=== PATIENT | male | born 1945 | race Caucasian/White ===

== ENCOUNTER → 2016-09-25 | Outpatient (CLI) | payer OTHER, MEDICARE | LOC: BHFA 15:45 | PROVIDERS: ATTEND Internal Medicine Cardiovascular Disease | DX: I48.0 Paroxysmal atrial fibrillation (principal); I10 Essential (primary) hypertension ==

== ENCOUNTER → 2016-10-01 | Outpatient (CLI) | payer OTHER, MEDICARE | LOC: BHFA 13:00 | PROVIDERS: ATTEND Internal Medicine Cardiovascular Disease | DX: I48.91 Unspecified atrial fibrillation (principal) ==

== ENCOUNTER 2016-10-04 07:52 | Emergency (ER) | payer OTHER, MEDICARE ==
[2016-10-04 07:58] VITALS: TEMP 97.7
--- NOTE | 2016-10-04 08:01 | EDPHY ---
H & P Time Seen by Provider: 10/04/16 08:00 HPI/ROS: CHIEF COMPLAINT: Blood in urine HISTORY OF PRESENT ILLNESS: Patient is on Pradaxa for atrial fibrillation and flutter and noted today in the morning that he was urinating blood. He does not have dizziness or lightheadedness or any other source of bleeding. He does not have bruising or bleeding from his gums when he brushes his teeth. No dysuria and no fever. Symptoms moderate. Not better worse with anything. REVIEW OF SYSTEMS: Eye: no change in vision ENT: no sore throat Cardiac: no chest pain or syncope. He does not think that he is currently in atrial fibrillation. Pulmonary: no cough or SOB Abdomen: no vomiting, diarrhea, abdominal pain Musculoskeletal: no back pain or flank pain or testicular symptoms. Skin: no rash Neuro: no headache, no speech or motor or sensory symptoms today. Constitutional: no fever : HPI A comprehensive 10 point review of systems is otherwise negative aside from elements mentioned in the history of present illness. PAST MEDICAL HISTORY: Atrial fibrillation and flutter on Pradaxa, prostate surgery in 2010, hernia repair in 2005, hypertension. Social history: Here with spouse General Appearance: Alert and conversant, cooperative. Eyes: No scleral icterus. ENT, Mouth: Normal mucous membranes. No intraoral bleeding. Respiratory: Normal respiratory effort, breath sounds equal, lungs are clear to auscultation. Cardiovascular: Regular rate and rhythm. Gastrointestinal: Abdomen is soft and non tender. Male normal except for slight blood at the meatus. Neurological: Alert and oriented x3. Normally conversant. Face symmetric, normal movement and sensation in all extremities. Skin: No bruising or petechiae. Musculoskeletal: No peripheral edema and no joint swelling. Psychiatric: Not agitated. Emergency Department course/MDM: Discussed with pharmacy 815am; patient will be given Praxbind. Potential risk of stroke with reversal of anticoagulation discussed with the patient and consented. At this point I think his risk of stroke when he is reversed for couple of days is low but with active hematuria benefit outweighs potential risk. He will call his asthma educator on Thursday to discuss. Smoking Status: Never smoked Constitutional: Initial Vital Signs Temperature (C) 36.5 C 10/04/16 07:55 Heart Rate 58 L 10/04/16 07:55 Respiratory Rate 20 10/04/16 07:55 Blood Pressure 182/97 H 10/04/16 07:55 O2 Sat (%) 98 10/04/16 07:55 O2 Delivery Mode Room Air Allergies/Adverse Reactions: HAYFEVER Allergy (Mild, Uncoded 12/29/11 09:40) Other-Enter Comments Home Medications: Medication Instructions Recorded Dabigatran Etexilate Mesyl 150 mg PO BID #60 cap 12/29/11 [Pradaxa 150 MG (*)] Ascorbic Acid [Vitamin C 500 mg 1,000 mg PO DAILY 01/19/12 (*)] Herbals/Supplements -Info Only 1 each PO AD 01/19/12 Vitamin B Complex [Vitamin B 1 each PO DAILY 01/19/12 Complex (OTC)] Levothyroxine [Synthroid 175 mcg 175 mcg PO DAILY06 05/19/16 (*)] Losartan Potassium [Cozaar] 100 mg PO DAILY 05/19/16 amLODIPine BESYLATE [Norvasc 5 mg 5 mg PO DAILY 05/19/16 (*)] Acetaminophen [Tylenol 325mg (*)] 325 - 650 mg PO Q4HRS PRN #0 tab 05/20/16 Metoprolol Succinate 10/04/16 Medical Decision Making Differential Diagnosis: Differential considered including but not limited to coagulopathy, UTI, local trauma, renal colic. - Data Points Laboratory Results: 10/04/16 08:00 Urine Color RED Urine Appearance TURBID Urine pH 6.0 (5.0-7.5) Ur Specific Atkins 1.021 (1.002-1.030) Urine Protein 2+ H (NEGATIVE) Urine Ketones NEGATIVE (NEGATIVE) Urine Blood 3+ H (NEGATIVE) Urine Nitrate NEGATIVE (NEGATIVE) Urine Bilirubin NEGATIVE (NEGATIVE) Urine Urobilinogen NEGATIVE EU EU (0.2-1.0) Ur Leukocyte Esterase NEGATIVE (NEGATIVE) Urine RBC 50-182 /hpf H /hpf (0-3) Urine WBC NONE SEEN /hpf /hpf (0-3) Ur Epithelial Cells NONE SEEN /lpf /lpf (NONE-1+) Ur Culture Indicated? NOT INDICATED (NI) Urine Glucose 1+ H (NEGATIVE) Medications Given: Discontinued Medications Idarucizumab (Praxbind) 2.5 gm IVP Q5M PRASANNA Stop: 10/04/16 08:36 Last Admin: 10/04/16 08:35 Dose: 2.5 gm Departure - Departure Disposition: Home, Routine, Self-Care Clinical Impression: Hematuria Condition: Good Instructions: Hematuria (ED) Additional Instructions: Stop taking your Pradaxa. Return for worsening blood in your urine or trouble urinating. Call your asthma educator on Thursday to discuss when to restart anticoagulation. Referrals: JOSE CARLOS BERNAL [Primary Care Provider] - As per Instructions Marcelino Farooq MD [Medical Doctor] - As per Instructions
[2016-10-04 08:13] LABS: COLOR RED; LEUKOCYTE ESTERASE,URINE NEGATIVE (NEGATIVE); NITRITE,URINE NEGATIVE (NEGATIVE)
[2016-10-04 08:25] LABS: RBC,URINE 50-182 /hpf (0-3)
[2016-10-04 08:26] LABS: WBC,URINE NONE SEEN /hpf (0-3)
[2016-10-04] MEDS: IDARUCIZUMAB 2.5 GM/50 ML VIAL IVP SCH ×2 (08:30→08:35)
[2016-10-04 09:08] VITALS: BP 121/74; PULSE 46; RESP 18; O2SAT 96
== END 2016-10-04 09:10 | disposition home or self-care (01) ==
DX: R31.9 Hematuria, unspecified (principal); I10 Essential (primary) hypertension
CPT/HCPCS: 96374

== ENCOUNTER → 2016-10-08 | Outpatient (CLI) | payer OTHER, MEDICARE | LOC: BHFA 14:15 | PROVIDERS: ATTEND Internal Medicine Cardiovascular Disease | DX: I48.91 Unspecified atrial fibrillation (principal); I48.92 Unspecified atrial flutter ==

== ENCOUNTER 2017-01-28 18:57 | Inpatient (IN) | payer OTHER, MEDICARE ==
--- NOTE | 2017-01-28 19:27 | CPEKG ---
Heart Rate: 70 RR Interval: 857 P-R Interval: 228 QRSD Interval: 152 QT Interval: 452 QTC Interval: 488 P [place]: 80 QRS [place]: 97 T Wave [place]: 5 EKG Severity - ABNORMAL ECG - EKG Impression: SINUS RHYTHM EKG Impression: FIRST DEGREE AV BLOCK EKG Impression: RIGHT BUNDLE BRANCH BLOCK EKG Impression: BORDERLINE ST DEPRESSION, LATERAL LEADS Electronically Signed By: Felipe Castle 28-Jan-2017 19:37:38
[2017-01-28] MEDS ORDERED: NS 1,000 ML IV ONE (19:46)
--- NOTE | 2017-01-28 19:49 | EDPHY ---
H & P Stated Complaint: syncopal episode w/ fall hit back of head Time Seen by Provider: 01/28/17 19:14 HPI/ROS: CHIEF COMPLAINT: Syncope, head injury HISTORY OF PRESENT ILLNESS: The patient presents to the ED after syncopal episode at home. The patient fell from a standing position in his kitchen. The patient struck the back of his head. There was unknown loss of consciousness. The patient was attended to fairly quickly by his . The patient does have a history of paroxysmal atrial fibrillation. He is currently not anticoagulated secondary to hematuria. The patient does have a history of syncope approximately 4 weeks ago with a similar head injury which she did not seek medical evaluation for. The patient currently denies any chest pain, shortness of breath, fever, cough congestion or additional acute medical complaints REVIEW OF SYSTEMS: A comprehensive 10 point review of systems is otherwise negative aside from elements mentioned in the history of present illness. Source: Patient Exam Limitations: No limitations - Personal History Current Tetanus/Diphtheria Vaccine: Unsure Current Tetanus Diphtheria and Acellular Pertussis (TDAP): Unsure Tetanus Vaccine Date: 2004 - Medical/Surgical History Hx Asthma: No Hx Chronic Respiratory Disease: No Hx Diabetes: No Hx Cardiac Disease: Yes Hx Renal Disease: No Hx Cirrhosis: No Hx Alcoholism: No Hx HIV/AIDS: No Hx Splenectomy or Spleen Trauma: No Other PMH: Afib, Aflutter, prostate resection 2010, hernia repair 2005, skin cancer---surgical removals of growths, hypertension. - Social History Smoking Status: Never smoked - Physical Exam Exam: General Appearance: Alert, no distress Head: Occipital hematoma noted Eyes: Pupils equal, round, reactive ENT, Mouth: No hemotympanum, no oral trauma Neck: Minimal tenderness to palpation occiput and upper cervical junction Respiratory: No chest wall tender, subcutaneous air, lungs clear bilaterally Cardiovascular: Regular rate and rhythm Abdomen: Abdomen is soft and nontender, pelvis stable Skin: No lacerations, No abrasion Back: No midline T/L/S pain Extremities: Nontender, full range of motion Neurological: A&Ox3, normal motor function, normal sensory exam Constitutional: Initial Vital Signs Temperature (C) 36.8 C 01/28/17 19:01 Heart Rate 67 01/28/17 19:01 Respiratory Rate 16 01/28/17 19:01 Blood Pressure 161/75 H 01/28/17 19:01 O2 Sat (%) 96 01/28/17 19:01 O2 Delivery Mode Room Air Allergies/Adverse Reactions: HAYFEVER Allergy (Mild, Uncoded 12/29/11 09:40) Other-Enter Comments Home Medications: Medication Instructions Recorded Dabigatran Etexilate Mesyl 150 mg PO BID #60 cap 12/29/11 [Pradaxa 150 MG (*)] Ascorbic Acid [Vitamin C 500 mg 1,000 mg PO DAILY 01/19/12 (*)] Herbals/Supplements -Info Only 1 each PO AD 01/19/12 Vitamin B Complex [Vitamin B 1 each PO DAILY 01/19/12 Complex (OTC)] Levothyroxine [Synthroid 175 mcg 175 mcg PO DAILY06 05/19/16 (*)] Losartan Potassium [Cozaar] 100 mg PO DAILY 05/19/16 amLODIPine BESYLATE [Norvasc 5 mg 5 mg PO DAILY 05/19/16 (*)] Acetaminophen [Tylenol 325mg (*)] 325 - 650 mg PO Q4HRS PRN #0 tab 05/20/16 Metoprolol Succinate 10/04/16 Medical Decision Making - Diagnostics EKG Interpretation: EKG: Complete interpretation has been separately recorded in the [email or web address] archive. Summary impression: Sinus rhythm, first-degree AV block, nonspecific ST T wave changes noted Imaging Results: Imaging Impressions Cervical Spine CT 01/28/17 19:15 Impression: 1. No acute posttraumatic abnormality identified. If symptoms persist and clinical suspicion warrants, consider MRI. 2. Multilevel degenerative change, with moderate to severe spinal canal narrowing. Findings discussed with Felipe Castle M.D., on January 28, [address] 01/28/17 19:15 Impression: Left frontal subarachnoid hemorrhage. Results called to Dr.Timothy Castle on January 28, 2017 at 1950 hours. ED Course/Re-evaluation: The patient presents to the ED after syncopal episode. The patient has been having problems with hypertension and atrial fibrillation. He has been adjusting his antihypertensive medications in this evening took a full dose of metoprolol on top of his losartan and amlodipine. The patient had a syncopal event falling backwards hitting his head. The patient does have a fairly large occipital hematoma upon arrival. The patient is neurologically intact. He is not anticoagulated. The patient was taken for a stat CT scan of the head and cervical spine which demonstrated scalp hematoma and a small frontal subarachnoid hemorrhage. Consultation was made with Neurosurgery who reports that the hemorrhage is small and likely inconsequential. They will see the patient in consultation. The patient did have a 2 second pause while in the emergency department. This was asymptomatic. The patient will require admission to the hospital for medical management. Consultation was made with Dr. Huston from the hospitalist service. The patient will be admitted to monitored PCU bed this evening. The patient was noted to have a more significant pause of 5 seconds while in the emergency department. He had no associated hypotension or syncope with this event. Dr. Blanchard from Cardiology and the hospitalist service has been notified. The patient was seen in consultation by Neurosurgery while in the emergency department. Consultation was made with Dr. Ritesh Blanchard from Cardiology who is aware of the patient's admission to the hospital. The patient will be transferred to the progressive care unit at 8:40 p.m.. Differential Diagnosis: Differential diagnosis considered includes syncope, vasovagal episode, intracranial hemorrhage, skull fracture, cervical spine fracture, medication side effect, anemia Critical Care Time: Critical care time exclusive of procedures and exclusive of the PA's time was 35 minutes, performed by myself, Felipe Castle MD. The patient presents to the ED after an episode of syncope and is noted to have sinus bradycardia and pauses while in the emergency department. The patient's syncope this evening was complicated by mechanical fall resulting in a subarachnoid hemorrhage. I consulted with Neurosurgery, Cardiology and the hospitalist service. The patient will require admission to the hospital to a monitored bed this evening. - Data Points Laboratory Results: Laboratory Results 01/28/17 19:19 01/28/17 19:19 01/28/17 01/28/17 01/28/17 19:19 19:19 19:07 WBC 7.59 10^3/uL 10^3/uL (3.80-9.50) RBC 4.67 10^6/uL 10^6/uL (4.40-6.38) Hgb 15.1 g/dL g/dL (13.7-17.5) Hct 45.1 % % (40.0-51.0) MCV 96.6 fL fL (81.5-99.8) MCH 32.3 pg pg (27.9-34.1) MCHC 33.5 g/dL g/dL (32.4-36.7) RDW 13.8 % % (11.5-15.2) Plt Count 255 10^3/uL 10^3/uL (150-400) MPV 9.9 fL fL (8.7-11.7) Neut % (Auto) 43.0 % % (39.3-74.2) Lymph % (Auto) 43.7 % % (15.0-45.0) [place] % (Auto) 9.7 % % (4.5-13.0) Eos % (Auto) 3.0 % % (0.6-7.6) Baso % (Auto) 0.3 % % (0.3-1.7) Nucleat RBC Rel Count 0.0 % % (0.0-0.2) Absolute Neuts (auto) 3.26 10^3/uL 10^3/uL (1.70-6.50) Absolute Lymphs (auto) 3.32 10^3/uL H 10^3/uL (1.00-3.00) Absolute Monos (auto) 0.74 10^3/uL 10^3/uL (0.30-0.80) Absolute Eos (auto) 0.23 10^3/uL 10^3/uL (0.03-0.40) Absolute Basos (auto) 0.02 10^3/uL 10^3/uL (0.02-0.10) Absolute Nucleated RBC 0.00 10^3/uL 10^3/uL (0-0.01) Immature Gran % 0.3 % % (0.0-1.1) Immature Gran # 0.02 10^3/uL 10^3/uL (0.00-0.10) PT 12.6 SEC SEC (12.0-15.0) INR 0.95 (0.83-1.16) Sodium 141 mEq/L mEq/L (134-144) Potassium 4.4 mEq/L mEq/L (3.5-5.2) Chloride 109 mEq/L mEq/L (97-110) Carbon Dioxide 20 mEq/l L mEq/l (22-31) Anion Gap 12 mEq/L mEq/L (8-16) BUN 28 mg/dL H mg/dL (7-23) Creatinine 1.3 mg/dL mg/dL (0.7-1.3) Estimated GFR 54 Glucose 92 mg/dL mg/dL (70-100) Calcium 9.6 mg/dL mg/dL (8.5-10.4) Troponin I < 0.012 ng/mL ng/mL (0-0.034) Medications Given: Discontinued Medications Sodium Chloride (Ns) 1,000 mls @ 0 mls/hr IV EDNOW ONE; Wide Open PRN Reason: Protocol Stop: 01/28/17 19:47 Last Admin: 01/28/17 20:33 Dose: 1,000 mls Departure - Departure Disposition: [facility] Inpatient Acute Clinical Impression: Syncope, Subarachnoid hemorrhage, Scalp hematoma Condition: Good Referrals: JOSE CARLOS BERNAL [Primary Care Provider] - As per Instructions
[2017-01-28 19:53] LABS: % IMMATURE GRANULYOCYTES 0.3 % (0.0-1.1); ABSOLUTE IMMATURE GRANULOCYTES 0.02 10^3/uL (0.00-0.10); ADD DIFF? NO; ADD MORPH? NO; ADD SCAN? NO; ATYPICAL LYMPHOCYTE FLAG 10 (0-99); FRAGMENT RBC FLAG 0 (0-99); HEMATOCRIT 45.1 % (40.0-51.0); HEMOGLOBIN 15.1 g/dL (13.7-17.5); LEFT SHIFT FLG 0 (0-99); LIPEMIA HEMOLYSIS FLAG 80 (0-99); MEAN CELL HEMOGLOBIN 32.3 pg (27.9-34.1); MEAN CELL HEMOGLOBIN CONCENTR. 33.5 g/dL (32.4-36.7); MEAN CELL VOLUME 96.6 fL (81.5-99.8); MEAN PLATELET VOLUME 9.9 fL (8.7-11.7); PLATELET CLUMPS FLAG 0 (0-99); PLATELET COUNT 255 10^3/uL (150-400); RED BLOOD CELL COUNT 4.67 10^6/uL (4.40-6.38); RED CELL DISTRIBUTION WIDTH 13.8 % (11.5-15.2)
[2017-01-28 20:11] LABS: INR 0.95 (0.83-1.16); PROTIME(PATIENT) 12.6 SEC (12.0-15.0)
[2017-01-28 20:14] LABS: ANION GAP 12 mEq/L (8-16); CALCIUM 9.6 mg/dL (8.5-10.4); CARBON DIOXIDE 20 mEq/l (22-31); CHLORIDE 109 mEq/L (97-110); CREATININE 1.3 mg/dL (0.7-1.3); GLOMERULAR FILTRATION RATE 54; GLUCOSE 92 mg/dL (70-100); POTASSIUM 4.4 mEq/L (3.5-5.2); SODIUM 141 mEq/L (134-144)
[2017-01-28 20:26] LABS: TROPONIN I < 0.012 ng/mL (0-0.034)
[2017-01-28] MEDS ORDERED: ACETAMINOPHEN 325 MG TAB PO PRN (22:03)
[2017-01-28] MEDS ORDERED: ONDANSETRON DISINTEGRATING 4 MG TAB PO PRN (22:03)
[2017-01-28] MEDS ORDERED: ONDANSETRON 4 MG/2 ML VIAL IVP PRN (22:03)
[2017-01-29] MEDS: LEVOTHYROXINE 200 MCG TAB PO SCH (06:06)
--- NOTE | 2017-01-29 07:02 | GHP ---
[f rep st] HISTORY AND PHYSICAL DATE OF ADMISSION: 01/28/2017 CHIEF COMPLAINT: Syncope. HISTORY OF PRESENT ILLNESS: This is a 71-year-old male with an extensive history of atrial fibrilla tion, atrial flutter. He is status post ablation x2. He has been having trouble with blood pressur e modulation over the last several months. He initially was started on metoprolol short-acting maurilio ral months ago but then was developing bradycardia and fatigue. This was discontinued and then even tually restarted on long-acting metoprolol which he seemed to tolerate better. However, his blood p ressure lately has been getting worse and so he has decided to try the short-acting metoprolol again . He took full dose this morning, then a full dose this evening. He had a chari syncopal episode ab out 45 minutes after taking that dose. He was standing in the kitchen and essentially fainted. He did injure his head and does have a very small subarachnoid hemorrhage. He does experience episodes of atrial fibrillation frequently, usually short runs. He says this usually is worse when his bloo d pressure is elevated. He is denying any chest pain or shortness of breath at this time. REVIEW OF SYSTEMS: A 10-point review of systems was obtained and as stated above, otherwise negativ e. PAST MEDICAL HISTORY: 1. Atrial fibrillation/atrial flutter, status post multiple ablations. 2. Hypertension, which is labile and difficult to control. 3. History of prostate resection and hernia repair. SOCIAL HISTORY: No smoking or alcohol. 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 FAMILY HISTORY: Reviewed and noncontributory. PHYSICAL EXAM: VITAL SIGNS: Afebrile. Blood pressure is 138/66, heart rate 62, oxygen saturation 100% on room air. GENERAL: The patient is well developed, no apparent distress. HEENT: Nonicteri c sclerae. Extraocular movements intact. Moist mucous membranes. NECK: Supple. No thyromegaly. LUNGS: Good effort. Clear to auscultation bilaterally. CARDIOVASCULAR: Regular rate and rhythm. No murmurs, gallops. ABDOMEN: Positive bowel sounds. Soft, nontender, nondistended. No hepatos plenomegaly. EXTREMITIES: No clubbing, cyanosis, or edema. SKIN: Without rash. Warm, dry, intac t. NEUROLOGIC: Alert and oriented x3. Moving all 4 extremities equally. PSYCH: Normal mood and affect. LABS: CBC is normal. Coags are normal. Chemistry is essentially normal. Troponin is negative. E KG personally reviewed and interpreted, shows a normal sinus rhythm and a right bundle branch block. Telemetry is reviewed and there is a 5 second pause and there are frequent PACs with frequent PACs as well. Head CT personally reviewed and interpreted, shows a small left frontal subarachnoid hemorrhage. ASSESSMENT/PLAN: This is a 71-year-old male with a history of atrial fibrillation and difficult to control hypertension, presented with syncopal episode after increasing his dose of metoprolol. 1. Syncope. I think this is related to the increased dose of metoprolol. He does have a 5 second pause that we have seen and some frequent PVCs. We will monitor him on telemetry and will get Cardi ology involved in the morning. We will hold anymore beta blockers. 2. Hypertension. We will continue his amlodipine and losartan. 3. Small subarachnoid hemorrhage. Neurosurgery feels that this is small and does not need followup CT. 4. History of atrial fibrillation. Patient has been off anticoagulation since his episode of hemat uria several months ago. Especially considering his subarachnoid hemorrhage we will continue to be off that. 5. Admission. Patient will be admitted under observation status. Case discussed with ER physician . /[id number]/MODL
[2017-01-29] MEDS: LOSARTAN POTASSIUM 50 MG TAB PO SCH (08:19)
--- NOTE | 2017-01-29 08:26 | NEUSURGPN ---
Assessment/Plan: 71 yr old male syncope, hit head-small tSAH 1. Neurologically stable, no need to re-scan head unless neuro changes 2. Patient history of afib, ok to restart anticoagulants Thursday02/01/17 3. Neurosurgery will sign off today, please contact us with any changes in neuro status 4. Follow up with neurosurgery in office if symptomatic after discharge Subjective: Mild headache Objective: A/O x3 PERRLA EOMI BUE, BLE 5/5 sensation intact to lt touch bue, ble Neuro Check Frequency: per routine Urinary Catheter in Place: No - Physician Discussed Patient with : Dilip Patient Seen by : Dilip Neurosurgery Physical Exam - Vitals, I&O, Labs I and O 01/28/17 01/29/17 01/30/17 05:59 05:59 05:59 Intake Total 1000 Output Total 600 325 Balance 400 -325 Weight 76.9 kg Intake: IV Infused (ml) 1000 Output: Urine (ml) 600 325 Urinal 600 325 Other: Number of Voids 1 Urinal 1 1 Vital Signs Temp Pulse Resp BP Pulse Ox 36.2 C 55 L 13 130/66 H 100 01/29/17 08:00 01/29/17 08:00 01/29/17 08:00 01/29/17 08:00 01/29/17 08:00 ICD10 Worksheet Patient Problems: Problems Problem Status Onset Scalp hematoma Acute Subarachnoid hemorrhage Acute Syncope Acute Atrial flutter Acute
[2017-01-29] MEDS ORDERED: NON-FORMULARY NEW DRUG (Losartan Potassium [Cozaar] 100 MG) PO SCH (09:00)
[2017-01-29] MEDS ORDERED: BACITRACIN IRRIGATION/NS 50,000 UNITS/1,000 ML BTL IRR ONE (10:09)
[2017-01-29] MEDS ORDERED: DIAZEPAM 5 MG TAB PO ONE (10:09)
[2017-01-29] MEDS ORDERED: diphenhydrAMINE 25 MG CAP PO ONE ×2 (10:09→11:55)
[2017-01-29] MEDS ORDERED: NS 1,000 ML IV SCH (10:15)
--- NOTE | 2017-01-29 10:58 | GCON ---
[f rep st] CONSULTATION CONSULTATION/HISTORY AND PHYSICAL DATE OF CONSULTATION: 01/28/2017 The patient seen in the emergency department by Dr. Miguel Cherry and myself at the ER at 2030 on 01/28/2017. CHIEF COMPLAINT: 1. Syncopal episode. 2. Traumatic subarachnoid hemorrhage. 3. Fall. 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 He states he is otherwise healthy except for some issues with his heart, dealing with some atrial fibrillation and hypertension. He was cooking and making his dinner tonight about 6:30. He states he has been adjusting his dose of metoprolol for hypertension and had a syncopal episode tonight, he fell and hit the back of the right side of his head. There was some period of loss of consciousness. His heard the fall and ran in to attend to him. He came into the hospital , and a CT scan of the neck was obtained, which was negative for any fracture and a CT scan of the head was obtained which showed a small left frontal traumatic subarachnoid hemorrhage. He denies any blood thinning medicine such as aspirin or Coumadin. He was on blood thinning medicines but stopped in October. He stopped this due to having hematuria. The patient denies any upper or lower extremity symptoms such as new numbness, tingling, or weakness. PAST MEDICAL HISTORY: Significant for the followin. AFib. 2. Atrial flutter. 3. Hypertension. 4. Hypothyroidism. MEDICATIONS: Include the following: Metoprolol, amlodipine, losartan, hydrochlorothiazide. ALLERGIES: No known drug allergies. SURGICAL HISTORY: 1. Patient has had [address] Hernandez. 2. Hernia repair, right inguinal. 3. Lipoma removal. 4. Prostate GreenLight laser treatment. 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 He is . Has 1 grown child. He does not smoke. Does not drink any alcohol. Does not use any illicit drugs. IMMUNIZATIONS: Reported up to date. TRAVEL: Patient did go to [facility] in November and [place] recently. REVIEW OF SYSTEMS: Complete review of systems done in conjunction with the above noted the following: HEENT: Mild right-sided posterior headache. No diplopia. No loss of vision. No loss of visual field. No hearing loss, tinnitus or vertigo. PULMONARY: No cough, sputum production, hemoptysis, dyspnea or pleuritic chest pain. CARDIAC: No chest pain or pressure. No palpitations. GI: No weight loss or gain. No nausea, vomiting, or diarrhea. : No dysuria, hematuria, nocturia, urgency or frequency. NEURO: Patient denies any dizziness. Does have syncope. No seizures. No upper or lower extremity weakness. PSYCH: No suicidality. PHYSICAL EXAMINATION: GENERAL: This is an awake, alert, oriented male, in no acute distress. VITAL SIGNS: Stable. HEENT: Pupils are equal, round, reactive to light. EOMIs intact. Full visual clark by confrontation. Ears are patent. Nose is patent. NECK: Soft and supple. Midline tenderness. Full range of motion in flexion, extension, lateral bending, and rotation. RESPIRATORY: Deferred. CARDIAC: Deferred. ABDOMEN: Soft, nontender. No peritoneal signs. /RECTAL: Deferred. NEURO: Patient is awake, alert, oriented to name, place, location, date, time, and situation. Memory is intact to immediate, past, and current events. Speech: No aphasia, dysarthria, dysphonia. Cranial nerves 2-12 grossly intact. 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 EHL testing: Sensation is grossly intact to light touch throughout all dermatome distributions in upper and lower extremities. Negative straight leg raise. Negative BALA test. Reflexes of biceps, triceps , brachioradialis, knee jerk, and ankle jerk are 2+/4. Toes downgoing bilaterally. Sy's negative. Babinski negative. No evidence of clonus. MEDICAL DECISION MAKING: Diagnostic studies: The patient did have EKG with periods of pauses for which Cardiology was consulted. A CT scan of the neck was negative for any acute fracture. CT scan of the head without contrast shows a left frontal lobe small traumatic subarachnoid hemorrhage with no shift. IMPRESSION: 1. Syncopal episode. 2. Left frontal traumatic subarachnoid hemorrhage. 3. Fall with pauses on manager of financial planning. PLAN AND DISCUSSION: The patient is a 71-year-old gentleman who does have some significant heart history with related to some ablations and atrial fibrillation. He also has some issues with hypertension. He had a syncopal episode. Tonight he was brought into the emergency department and showed a small left frontal traumatic subarachnoid hemorrhage on his CT scan. We will follow him with neurologic checks but he does not require any further CT scan or imaging at this time unless any neuro changes occur. The patient was seen in the emergency department both by myself and Dr. Cherry. Medicine will be admitting him and work him up as far as causes of his syncopal episode. Cardiology reportedly was consulted as well, who will give us an opinion about his condition as well. He has had long pauses on his EKG and had some increase , based on his own recommendations, with his metoprolol which could have lead to an episode of hypotension and syncope or slow heart rate, but we will defer to Internal Medicine and Cardiology for further workup and their expertise. The patient understands and agrees as does his who was present at our visit. /[id number]/MODL MTDD
[2017-01-29] MEDS ORDERED: ceFAZolin 2 GM/DEXTROSE 100 ML IV ONE (11:55)
[2017-01-29] MEDS ORDERED: BUPIVACAINE 0.5% 30 ML SDV ONE (12:36)
[2017-01-29] MEDS ORDERED: MIDAZOLAM 2 MG/2 ML VIAL ONE ×2 (12:36→13:37)
[2017-01-29] MEDS ORDERED: fentaNYL 100 MCG/2 ML INJ ONE ×2 (12:36→13:37)
[2017-01-29] MEDS ORDERED: LIDO/EPI 1% **for epidural** 30 ML SDV ONE (12:36)
[2017-01-29] MEDS ORDERED: LIDOCAINE 1% 300 MG/30 ML SDV ONE (12:36)
--- NOTE | 2017-01-29 12:53 | SOAPPROG ---
[facility] Progress Note Assessment/Plan: Assessment: He has a history of known conduction system disease in the form of a right bundle branch block and first-degree AV block . Additionally, he has had episodes of intermittent atrial fibrillation ever since his prior two atrial flutter ablations. He presents now with episodes of syncope associated with objective findings of very long cardiac pauses at the time of conversion from atrial fibrillation to sinus rhythm. This is occurring in the setting of a background therapy of very low doses of metoprolol at 12-,1/2 mg twice daily. Presently, I think that he meets a class 1 indication for placement of a permanent dual-chamber pacemaker. Consideration could be given to cessation of his beta-blockers in observation for recurrent episodes of bradycardia however I think this is very likely to occur and he has already demonstrated that he is prone to injury. I described to him the procedure in detail. The risks, benefits and alternatives were described. He is in agreement. We will place a permanent pacemaker this afternoon. Following placement of this device, we can consider more aggressive therapy of his underlying atrial arrhythmias including advanced medical therapy or potentially referring him for another ablation procedure. I discussed this with Neurosurgery. They do not see any contraindication to proceeding. Per their recommendations, if we should decide anticoagulated he would be suitable for anticoagulation beginning Thursday. 01/29/17 12:56 Subjective: The patient was seen and examined. His chart was reviewed. He is typically followed as an outpatient by Dr. Tan Hernandez. Has a history of paroxysmal atrial flutter. He has had 2 previous atrial flutter ablation. Following this he has had episodes of recurrent atrial fibrillation. Symptoms in atrial fibrillation include palpitations and fatigue. He has been treated as an outpatient with very low-dose of metoprolol at 12-,1/2 mg twice daily. He is currently not on systemic anticoagulation by his own choice. Apparently, he had hematuria at 1 point when taking 1 of the novel agents. This was discontinued and he has not had any recurrent hematuria. He is admitted now following an episode of syncope. He states that he was feeling fairly well yesterday. At about 6:00 p.m. he got up off the couch to going to the kitchen to make dinner. After that he remembers waking up on the floor with his by his side. He did fall and strike his head. As a result he has sustained a small subarachnoid bleed. In talking to him about this he states that he had a similar event 3 weeks ago. At that time he struck the front of his head. He has been experiencing worsening and increasing episodes of palpitations. Because of this he took an additional half a tablet of metoprolol yesterday morning. 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 He has been using [employer] Her[employer]. In asking him about these changes are of he states that these typically do not affect heart rate. He has also noted increasing episodes of palpitations. These typically occur at night . Often times he has episodes of presyncope associated with his palpitations. He denies symptoms of chest pain. He notes no dyspnea. He denies orthopnea, PND and lower extremity edema. Objective: Vital Signs Temp Pulse Resp BP Pulse Ox 37.2 C 58 L 16 133/65 H 93 01/29/17 12:11 01/29/17 12:11 01/29/17 12:11 01/29/17 12:11 01/29/17 12:11 01/28/17 01/29/17 01/30/17 05:59 05:59 05:59 Intake Total 1000 Output Total 600 325 Balance 400 -325 PT 12.6 SEC (12.0-15.0) 01/28/17 19:07 INR 0.95 (0.83-1.16) 01/28/17 19:07 His electrocardiogram demonstrates normal sinus rhythm with first-degree AV block and a wide right bundle branch block. In reviewing telemetry, he has had multiple nonsustained episodes of atrial fibrillation. In conjunction with conversion from atrial fibrillation to normal sinus rhythm there has been evidence of pauses up to 7.9 seconds in duration. Additionally, he has had multiple pauses greater than 3 seconds in duration associated with frequent premature atrial contractions and post compensatory pauses. Physical Exam - Physical Exam General Appearance: WD/WN, no apparent distress Neck: full range of motion Respiratory: chest non-tender Cardiac/Chest: normal peripheral pulses, regular rate, rhythm, No edema, No gallop, No JVD Peripheral Pulses: 2+: carotid (R), carotid (L) Abdomen: non-tender, soft Male Genitalia: deferred Rectal: deferred Neuro/Psych: alert, oriented x 3 ICD10 Worksheet Patient Problems: Problems Problem Status Onset Scalp hematoma Acute Subarachnoid hemorrhage Acute Syncope Acute Atrial flutter Acute
[2017-01-29] MEDS ORDERED: CEFAZOLIN 1 GM/DEXTROSE/50 ML BAG IV ONE (13:09)
[2017-01-29] MEDS ORDERED: DOPamine/DEXTROSE/250 ML BAG IV ONE (13:25)
[2017-01-29] MEDS ORDERED: EPINEPHrine 1 MG/10 ML SYR IVP ONE (13:25)
[2017-01-29] MEDS ORDERED: ATROPINE SULFATE 1 MG/10 ML SYR ONE (13:25)
--- NOTE | 2017-01-29 14:25 | POSTOPPROG ---
Post Op Note Date of Operation: 01/29/17 Surgeon: Ritesh Blanchard Anesthesia: IV Sedation, Local (Specify) Pre-op Diagnosis: SSS with Syncope Post-op Diagnosis: Same Indication: Above Procedure: Dual chamber pacemaker Findings: N/A Inf/Abcess present in the surg proc area at time of surgery?: No Depth: Superfical (Skin SQ) EBL: Minimal
--- NOTE | 2017-01-29 15:04 | CPEKG ---
Heart Rate: 60 RR Interval: 1000 P-R Interval: 224 QRSD Interval: 154 QT Interval: 480 QTC Interval: 480 QRS [place]: 116 T Wave [place]: 25 EKG Severity - ABNORMAL ECG - EKG Impression: ATRIAL-PACED RHYTHM EKG Impression: RBBB AND LPFB EKG Impression: ATRIAL PACING IS NEW Electronically Signed By: Jarek Cutler 29-Jan-2017 21:38:55
--- NOTE | 2017-01-29 15:05 | HOSPPROG ---
Hospitalist Progress Note Assessment/Plan: * Syncope - due to cardiac pause/bradycardia -d/w Dr. Blanchard - PPM today * Afib s/p ablation -no anticoagulation due to patient choice * Small frontal traumatic SAH -stable * HTN -now on losartan + PO diltiazem Subjective: NO new complaints. Objective: Vital Signs Temp Pulse Resp BP Pulse Ox 37.2 C 58 L 16 133/65 H 93 01/29/17 12:11 01/29/17 12:11 01/29/17 12:11 01/29/17 12:11 01/29/17 12:11 01/28/17 01/29/17 01/30/17 05:59 05:59 05:59 Intake Total 1000 Output Total 600 325 Balance 400 -325 PT 12.6 SEC (12.0-15.0) 01/28/17 19:07 INR 0.95 (0.83-1.16) 01/28/17 19:07 EKG viewed, my personal interpretation is - 1st degree plus RBBB - Physical Exam Constitutional: no apparent distress, appears nourished, not in pain Cardiovascular: regular rate and rhythym, no murmur, rub, or gallop Respiratory: no respiratory distress, no rales or rhonchi, clear to auscultation Gastrointestinal: normoactive bowel sounds, soft, non-tender abdomen, no palpable masses Skin: no rashes or abrasions, no fluctuance, no induration Neurologic: AAOx3, sensation intact bilaterally Psychiatric: interacting appropriately, not anxious, not encephalopathic, thought process linear ICD10 Worksheet Patient Problems: Problems Problem Status Onset Scalp hematoma Acute Subarachnoid hemorrhage Acute Syncope Acute Atrial flutter Acute
[2017-01-29] MEDS: DILTIAZEM CD 120 MG CAP PO SCH (17:05)
--- NOTE | 2017-01-30 00:15 | CPIP ---
[f rep st] INVASIVE CARDIAC PROCEDURE DATE OF PROCEDURE: 01/29/2017 INDICATION: The patient is a pleasant 71-year-old male. He has a history of paroxysmal atrial flut ter with 2 previous flutter ablations. He currently has paroxysmal atrial fibrillation. He is admi tted following multiple episodes of syncope. On telemetry, he is found to have cardiac pauses of up to 7.9 seconds in duration. PROCEDURE: Implantation of a dual-chamber pacemaker. TECHNIQUE: Following informed consent and in the fasting state, the left chest was prepped and drap ed in usual sterile fashion. Immediately prior to the procedure, prophylactic antibiotics were admi nistered. 2% lidocaine was infiltrated in the skin below the left clavicle. Using a #10 blade, a 3 cm incision was made. Using blunt and sharp dissection, the pacemaker pocket was fashioned and all bleeders were cauterized. Using the modified Seldinger technique and 2 separate sticks, access was gained to the axillary vein at the level of the 1st rib. Two individual 0.035 J-wires were placed. Using the first of these J-wires, a 6-[place] sheath was placed. This allowed us to position the r ight ventricular lead deep into the right ventricular apex where the sheath was torn away and the le ad screwed into place. Using another 6-[place]val[place] sheath, the atrial lead was then placed in the right atrial appendage. This lead was screwed into place and the sheath torn away. Both leads were then tested individually. There was adequate capture and sensing noted. At this point, the leads were secured to the pacemaker pocket floor using 0 Ethibond. The pocket wa s then irrigated with antibiotic-containing solution. The pocket was inspected. All bleeders were cauterized. The device was brought to the field, both leads were identified by serial number and af fixed to the header according to handle maker guidelines. The device and the redundant portions of both leads were then placed in the pocket. The device was secured in place with a single 0 silk sut ure. The pocket was then closed in 3 layers, initially using 2 layers of interrupted suture with 2- 0 and 3-0 Vicryl. Running subcuticular sutures for the skin were then placed. Steri-Strips and a d ry dressing were placed. COMPLICATIONS: None. DEVICE INFORMATION: The pacemaker is a Contattaronik Edora 8DRT, model number 367456, serial number [id number]. The atrial lead is Biotronik Solia S45, model number 077564, serial number [id number]. The ve ntricular lead is a Biotronik Solia S53, model number 769703, serial number [id number]. In the atrium , capture was 0.6 V at 1 msec with sensed P waves of 3.1 mV and lead impedance of 468 ohms. In the ventricle, capture was 0.4 V at 0.4 msec with a lead impedance of 741 ohms and sensed R waves of 7.9 mV. DISPOSITION: The patient will be recovered in the CVC. He will be transferred to the PCU. He will be observed overnight. I anticipate that he will be discharged home tomorrow. /[id number]/MODL
[2017-01-30] MEDS: LEVOTHYROXINE 200 MCG TAB PO SCH (06:47)
[2017-01-30 07:22] VITALS: BP 128/74; PULSE 72; RESP 20; TEMP 97.6; O2SAT 92
[2017-01-30] MEDS: DILTIAZEM CD 120 MG CAP PO SCH (08:49)
[2017-01-30] MEDS: LOSARTAN POTASSIUM 50 MG TAB PO SCH (08:49)
--- NOTE | 2017-01-30 09:13 | CPEKG ---
Heart Rate: 72 RR Interval: 833 P-R Interval: 204 QRSD Interval: 86 QT Interval: 436 QTC Interval: 478 QRS [place]: 85 T Wave [place]: 69 EKG Severity - ABNORMAL ECG - EKG Impression: ATRIAL-PACED COMPLEXES EKG Impression: BORDERLINE RIGHT AXIS DEVIATION EKG Impression: PACs ARE NOTED Electronically Signed By: Jarek Cutler 30-Jan-2017 14:15:26
--- NOTE | 2017-01-31 05:33 | GDS ---
[f rep st] DISCHARGE SUMMARY DISCHARGE DIAGNOSES: 1. Syncope due to bradycardia and cardiac pause, status post pacemaker. 2. Atrial fibrillation, status post previous ablation. 3. Small frontal traumatic subarachnoid hemorrhage. 4. Hypertension. HISTORY: The patient is a 71-year-old male, who had a syncopal event after taking an extra dose of metoprolol. He was admitted to the hospital and had significant cardiac pauses and bradycardia, whi ch Cardiology felt was more than could be resolved by simply discontinuing metoprolol. He went to p ermanent pacemaker placement with Dr. Blanchard. He has had a previous ablation for AFib. He is not an ticoagulated due to his choice. During his syncopal event, he hit his head and has a small frontal traumatic subarachnoid hemorrhage . Neurosurgery was consulted and reviewed his scans and felt this hemorrhage portended an excellent prognosis and no further followup was needed. Dr. Blanchard has chosen to discontinue his metoprolol and instead place him on oral diltiazem at the ti me of discharge. DISCHARGE MEDICATIONS: Please see computer record for full detailed list. New medications: Diltiazem CD 120 mg p.o. daily. Discontinued medications: Metoprolol 25 mg p.o. b.i.d., Norvasc 2.5 mg p.o. daily. All other medications were continued as they were prior to admission. DISCHARGE INSTRUCTIONS: 1. Follow up with Dr. Hernandez as arranged for post pacemaker followup. 2. Follow up with Neurosurgery post discharge only if symptomatic. Greater than 30 minutes' time was spent arranging this discharge. Patient was seen and examined by me on the day of discharge. /[id number]/MODL
== END 2017-01-30 12:44 | disposition home or self-care (01) | DRG 242 ==
LOC: INTOOBSV 20:19 → F2N 21:56 → OBSVTOIN 01-29 14:21 → F2W 01-29 16:40
PROVIDERS: ADMIT Internal Medicine; ATTEND Internal Medicine
PROC: 02HK3MZ Insertion of Cardiac Lead into Right Ventricle, Percutaneous Approach (ICD-10-PCS; principal; 2017-01-29)
PROC: 02H63MZ Insertion of Cardiac Lead into Right Atrium, Percutaneous Approach (ICD-10-PCS; principal; 2017-01-29)
PROC: 0JH606Z Insertion of Pacemaker, Dual Chamber into Chest Subcutaneous Tissue and Fascia, Open Approach (ICD-10-PCS; principal; 2017-01-29)
DX: R00.1 Bradycardia, unspecified (principal); S06.6X0A Traumatic subarachnoid hemorrhage without loss of consciousness, initial encounter; E03.9 Hypothyroidism, unspecified; W18.39XA Other fall on same level, initial encounter; I10 Essential (primary) hypertension; Y92.010 Kitchen of single-family (private) house as the place of occurrence of the external cause; Z85.820 Personal history of malignant melanoma of skin
CPT/HCPCS: 92523-GN; 97161-GP; 97165-GO; C1785; C1898; G0378; G8978-GP-CH; G8979-GP-CH; G8980-GP-CH; G8987-GO-CI; G8988-GO-CI; G8989-GO-CI; G9165-GN-CH; G9166-GN-CH; G9167-GN-CH; J0461; J0690; J1265; J2250; J3010

== ENCOUNTER 2017-07-03 08:48 | Emergency (ER) | payer OTHER, MEDICARE ==
[2017-07-03 08:57] VITALS: TEMP 96.8
[2017-07-03] MEDS ORDERED: HYDROmorphONE/DILAUDID 1 MG/ML INJ IVP PRN (09:27)
[2017-07-03] MEDS ORDERED: ONDANSETRON 4 MG/2 ML VIAL IVP ONE (09:28)
[2017-07-03 09:34] LABS: PLATELET COUNT 210 10^3/uL (150-400)
[2017-07-03 09:36] LABS: INR 1.1 (0.83-1.16); PROTIME(PATIENT) 14.4 SEC (12.0-15.0)
--- NOTE | 2017-07-03 09:56 | EDPHY ---
H & P Time Seen by Provider: 07/03/17 09:35 HPI/ROS: CHIEF COMPLAINT: Mechanical fall, left wrist injury, left eyebrow laceration HISTORY OF PRESENT ILLNESS: 71-year-old male presents to the emergency department by private vehicle with his after mechanical fall earlier this morning. The patient was walking outside with his and slipped on some ice and injured his left wrist and hit his head. He did not lose consciousness. He complains of pain in his left wrist especially with movement. He denies any chest pain or difficulty breathing. Denies any presyncopal symptoms prior to his fall. Denies neck or back pain. Denies abdominal pain or vomiting. Denies injury to his lower extremities. REVIEW OF SYSTEMS: Constitutional: No fever, no chills. Eyes: No double or blurry vision. ENT: No sore throat. Respiratory: No cough, no shortness of breath. Cardiac: No chest pain. Gastrointestinal: No abdominal pain, vomiting or diarrhea. Genitourinary: No dysuria. Musculoskeletal: No neck or back pain. Skin: Eyebrow laceration. No rashes. Neurological: No headache. Past Medical/Surgical History: Atrial flutter with ablation and cardioversion, atrial fibrillation, pacemaker, prostate resection 2010, hernia repair 2005, skin cancer, hypertension, syncopal episode January 2017, lipoma removal Social History: Smoking Status: Never smoked Physical Exam: General Appearance: Alert, no distress. Mentating normally and answering questions appropriately. at bedside. Eyes: Pupils equal and round. Extraocular motions are all intact. Small less than 2 cm laceration to the left eyebrow. No active bleeding currently. ENT: Mouth: Mucous membranes moist. No dental injury or malocclusion. Respiratory: No wheezing, rhonchi, or rales, lungs are clear to auscultation. Cardiovascular: Regular rate and rhythm. Gastrointestinal: Abdomen is soft and nontender, no masses, no rebound or guarding, bowel sounds normal. Neurological: Alert and oriented x 3, cranial nerves II through XII grossly intact Skin: Left eyebrow laceration as noted above. Warm and dry, no rashes. Musculoskeletal: Nontender to palpate along the cervical, thoracic or lumbar spine. Neck is supple. Extremities: Obvious deformity noted to the left wrist. Normal sensation to light touch with normal 2 point discrimination. No signs of open fracture. Unable to supinate the left wrist secondary to pain. Strong radial pulse at the left wrist. Nontender to palpate the left hand or left elbow or left shoulder. Full range of motion of the right upper extremity and lower extremities bilaterally. Psychiatric: Patient is oriented X 3, there is no agitation. Constitutional: Initial Vital Signs Temperature (C) 36.0 C 07/03/17 08:54 Heart Rate 67 07/03/17 08:54 Respiratory Rate 18 07/03/17 08:54 Blood Pressure 163/81 H 07/03/17 08:54 O2 Sat (%) 97 07/03/17 08:54 O2 Delivery Mode Room Air O2 (L/minute) 2 Allergies/Adverse Reactions: cat dander Allergy (Verified 07/03/17 08:57) HAYFEVER Allergy (Mild, Uncoded 12/29/11 09:40) Other-Enter Comments Home Medications: Medication Instructions Recorded Ascorbic Acid [Vitamin C 500 mg 1,000 mg PO DAILY 01/28/17 (*)] Herbals/Supplements -Info Only 1 ea PO DAILY 01/28/17 Levothyroxine [Synthroid 200 mcg 200 mcg PO DAILY06 01/28/17 (*)] Losartan Potassium [Cozaar] 100 mg PO DAILY 01/28/17 Vitamin B Complex [B Complex] 1 each PO DAILY 01/28/17 Carvedilol 07/03/17 Eliquis 07/03/17 Rythmol Sr 07/03/17 Medical Decision Making - Diagnostics Imaging Results: Imaging Impressions Wrist X-Ray 07/03/17 09:28 Impression: 1. Comminuted intraarticular fracture of the distal radius with dorsal angulation and displacement. 2. Probable nondisplaced ulnar styloid fracture. Head CT 07/03/17 09:52 Impression: 1. No acute intracranial findings. 2. Diffuse cerebral atrophy with periventricular and subcortical low attenuation consistent with chronic microvascular ischemic gliosis. Findings discussed with Shari Anton on 07/03/2017 at 10:28 a.m. Procedures: Laceration repair. Verbal consent was obtained from the patient. The 1.5 cm laceration on the left eyebrow was anesthetized using 1% lidocaine with epinephrine. The wound was irrigated with saline, draped and explored to its base with a gloved finger. There were no deep structures involved. The wound was repaired with 6 0 Prolene, 5 sutures. The wound repair was simple. The procedure was performed by myself. ED Course/Re-evaluation: 71-year-old male presents to the emergency department after mechanical fall slipping on ice. He injured his left wrist and sustained a left eyebrow laceration. The patient is on Eliquis. Explained the concern of possible intracranial bleeding. I discussed the pros and cons of CT imaging of his brain including radiation exposure and the patient agrees with CT scan. CT imaging of the brain was normal. Left eyebrow laceration was repaired, see procedure note. X-rays reveal comminuted, displaced distal radius fracture. This was discussed with Dr. Jodi Morgan who performed hematoma block and reduction of the patient's left wrist fracture. Dr. Jodi Morgan placed sugar-tong splint and sling. This was examined post application in good placement with normal SUSTAINABILITY PURCHASING AGENT. Patient was given orthopedic referral. I did speak with the on-call physician kindergarten teacher assistant, Yen, working with Dr. Marcelino Moss. He was instructed to call to arrange follow-up appointment for next week. Differential Diagnosis: Head injury including but not limited to concussion, skull fracture, intraparenchymal contusion, subarachnoid, subdural and epidural hematoma. Wrist injury including but not limited to fracture, dislocation, contusion, sprain - Data Points Laboratory Results: Laboratory Results 07/03/17 09:10 07/03/17 09:10 07/03/17 07/03/17 07/03/17 09:10 09:10 09:10 WBC 6.15 10^3/uL 10^3/uL (3.80-9.50) RBC 4.62 10^6/uL 10^6/uL (4.40-6.38) Hgb 14.9 g/dL g/dL (13.7-17.5) Hct 42.4 % % (40.0-51.0) MCV 91.8 fL fL (81.5-99.8) MCH 32.3 pg pg (27.9-34.1) MCHC 35.1 g/dL g/dL (32.4-36.7) RDW 13.1 % % (11.5-15.2) Plt Count 210 10^3/uL 10^3/uL (150-400) MPV 8.9 fL fL (8.7-11.7) Neut % (Auto) 51.5 % % (39.3-74.2) Lymph % (Auto) 29.1 % % (15.0-45.0) [place] % (Auto) 9.8 % % (4.5-13.0) Eos % (Auto) 9.4 % H % (0.6-7.6) Baso % (Auto) 0.0 % L % (0.3-1.7) Nucleat RBC Rel Count 0.0 % % (0.0-0.2) Absolute Neuts (auto) 3.17 10^3/uL 10^3/uL (1.70-6.50) Absolute Lymphs (auto) 1.79 10^3/uL 10^3/uL (1.00-3.00) Absolute Monos (auto) 0.60 10^3/uL 10^3/uL (0.30-0.80) Absolute Eos (auto) 0.58 10^3/uL H 10^3/uL (0.03-0.40) Absolute Basos (auto) 0.00 10^3/uL L 10^3/uL (0.02-0.10) Absolute Nucleated RBC 0.00 10^3/uL 10^3/uL (0-0.01) Immature Gran % 0.2 % % (0.0-1.1) Immature Gran # 0.01 10^3/uL 10^3/uL (0.00-0.10) PT 14.4 SEC SEC (12.0-15.0) INR 1.10 (0.83-1.16) Sodium 142 mEq/L mEq/L (134-144) Potassium 4.6 mEq/L mEq/L (3.5-5.2) Chloride 106 mEq/L mEq/L (97-110) Carbon Dioxide 24 mEq/l mEq/l (22-31) Anion Gap 12 mEq/L mEq/L (8-16) BUN 19 mg/dL mg/dL (7-23) Creatinine 1.1 mg/dL mg/dL (0.7-1.3) Estimated GFR > 60 Glucose 135 mg/dL H mg/dL (70-100) Calcium 9.4 mg/dL mg/dL (8.5-10.4) Medications Given: Discontinued Medications Fentanyl (Sublimaze) 100 mcg IVP EDNOW ONE Stop: 07/03/17 11:46 Last Admin: 07/03/17 11:48 Dose: 100 mcg Hydromorphone HCl (Dilaudid) 1 mg IVP Q4HRS PRN PRN Reason: Pain, Severe Unable to Take PO Stop: 07/13/17 09:26 Last Admin: 07/03/17 09:32 Dose: 1 mg Ondansetron HCl (Zofran) 4 mg IVP EDNOW ONE Stop: 07/03/17 09:29 Last Admin: 07/03/17 09:32 Dose: 4 mg Departure - Departure Disposition: Home, Routine, Self-Care Clinical Impression: Left wrist fracture Qualifiers: Encounter type: initial encounter Fracture type: closed Qualified Code(s): S62.102A - Fracture of unspecified carpal bone, left wrist, initial encounter for closed fracture Laceration of left eyebrow without complication Qualifiers: Encounter type: initial encounter Qualified Code(s): S01.112A - Laceration without foreign body of left eyelid and periocular area, initial encounter Condition: Good Instructions: Care For Your Stitches (ED), Laceration (ED), Wrist Fracture in Adults (ED), Acute Wounds (ED) Additional Instructions: Wound Care Follow-Up: Removal of sutures in 5 days. Suture removal is complimentary in uncomplicated cases. Infection or abnormal findings would require reevaluation by the MD. In that case, you may be billed. Keep splint on and keep sling on until follow-up with orthopedic surgeon next week. Call after 1:00 p.m. today and tell them that you were seen in the emergency department with a displaced left distal radius fracture which was reduced in the emergency department. Tylenol 1000 mg every 4-6 hours as needed for pain. Referrals: JOSE CARLOS BERNAL [Primary Care Provider] - As per Instructions Marcelino Moss MD [Medical Doctor] - 2-3 days without fail (Orthopedic surgeon on -call)
[2017-07-03 11:25] VITALS: RESP 16
[2017-07-03] MEDS ORDERED: fentaNYL 100 MCG/2 ML INJ ONE (11:29)
[2017-07-03] MEDS ORDERED: fentaNYL 100 MCG/2 ML INJ IVP ONE (11:45)
[2017-07-03 12:56] VITALS: BP 146/83; PULSE 72; O2SAT 97
--- NOTE | 2017-07-03 18:30 | ASDISCHSUM ---
Discharge Information Plan Status:Home with No Needs Medically Cleared to Leave: Discharge Date:07/03/2017 12:53 PM CM D/C Disposition:Home, Routine, Self-Care ADT D/C Disposition:Home, Routine, Self-Care Projected Discharge Date:07/03/2017 12:53 PM Transportation at D/C:Family Discharge Delay Reason: Follow-Up Date:07/03/2017 12:53 PM Discharge Slot: Final Diagnosis: Placement Information Patient Contact Information Contact Name:DAVON Relationship: Address:[address] [place] Work Phone: City:[place] [facility] Phone: [facility]/Zip Code:[place] [address] Email: Financial Information Financial Class: Primary Plan Desc:MEDICARE OUTPATIENT Primary Plan Number:[id number] Secondary Plan Desc:G[employer]/RIVERA SUPPLEMENT Secondary Plan Number:[id number] Assessment Information LACE LACE Acuity / Level of Care Answers: No. Emergency dept visits in Answers: 2 last 6 months Score: 2 Date Signed: 07/03/2017 06:28 PM Electronically Signed By:Edie Florentino RN Intervention Information
== END 2017-07-03 12:53 | disposition home or self-care (01) ==
PROC: 08QPXZZ Repair Left Upper Eyelid, External Approach (ICD-10-PCS; principal; 2017-07-03)
DX: S52.572A Other intraarticular fracture of lower end of left radius, initial encounter for closed fracture (principal); S01.112A Laceration without foreign body of left eyelid and periocular area, initial encounter; I10 Essential (primary) hypertension; Z85.828 Personal history of other malignant neoplasm of skin; Z95.0 Presence of cardiac pacemaker; Z79.01 Long term (current) use of anticoagulants; W01.198A Fall on same level from slipping, tripping and stumbling with subsequent striking against other object, initial encounter; Y99.8 Other external cause status; Y93.01 Activity, walking, marching and hiking
CPT/HCPCS: 12011; 70450; 73110; 96374; 96375; 99285; J1170; J2405; J3010; L3925

== ENCOUNTER → 2017-12-24 | Outpatient (CLI) | payer OTHER, MEDICARE | LOC: CIMAGING 12:29 | PROVIDERS: ATTEND Internal Medicine Cardiovascular Disease | DX: R60.9 Edema, unspecified (principal); Z95.0 Presence of cardiac pacemaker | CPT/HCPCS: 93005-PO; 93971-PO ==

== ENCOUNTER → 2017-12-24 | Outpatient (CLI) | payer OTHER, MEDICARE | LOC: BHLMT 11:00 | PROVIDERS: ATTEND Internal Medicine Cardiovascular Disease | DX: I48.91 Unspecified atrial fibrillation (principal); I48.92 Unspecified atrial flutter; I82.409 Acute embolism and thrombosis of unspecified deep veins of unspecified lower extremity; I49.5 Sick sinus syndrome; N52.9 Male erectile dysfunction, unspecified; Z95.0 Presence of cardiac pacemaker | CPT/HCPCS: 93005-PO ==

== ENCOUNTER → 2018-07-26 | Outpatient (CLI) | payer OTHER, MEDICARE | LOC: BHFA 13:30 | PROVIDERS: ATTEND Internal Medicine Cardiovascular Disease | DX: I48.91 Unspecified atrial fibrillation (principal); I48.92 Unspecified atrial flutter; Z95.0 Presence of cardiac pacemaker ==

== ENCOUNTER → 2018-11-16 | Outpatient (CLI) | payer OTHER, MEDICARE | LOC: FIMAGING 08:24 | PROVIDERS: ATTEND Internal Medicine Cardiovascular Disease | DX: R05 Cough (principal) ==